=== PATIENT | male | born 1955 | race Caucasian/White ===

== ENCOUNTER 2018-03-19 06:21 | Outpatient (CLI) | payer OTHER ==
[~2018-03-19] VITALS: Ht 175.3 cm; Wt 81.6 kg
[2018-03-19] MEDS ORDERED: LISI1TAB10 PO (12:28)
== END 2018-03-19 12:29 | disposition home or self-care (01) ==
LOC: PREOP 06:21
PROVIDERS: ATTEND Internal Medicine
DX: Z01.818 Encounter for other preprocedural examination (principal)

== ENCOUNTER 2018-03-23 07:57 | Day surgery (SDC) | payer OTHER ==
--- NOTE | 2018-03-15 17:11 | HISTORY AND PHYSICAL ---
DATE OF SERVICE: ESOPHAGOGASTRODUODENOSCOPY HISTORY AND PHYSICAL DATE OF : 1955. HISTORY OF PRESENT ILLNESS: The patient is a 62-year-old white male who presented for yearly wellness evaluation. He has a history of hypertension and insulin resistance with no known history of vascular disease. He stated that he has, over the past several months, been having difficulty with intermittent dysphagia to solids only. He denies any heartburn symptomatology and he denies weight loss, abdominal pain, odynophagia, melena or bright red blood per rectum. He does feel like he has to force food down with a small sip or 2 of liquid. PAST MEDICAL HISTORY: Significant for hypertension and insulin resistance. He has had no significant past surgical history other than a right knee scope over 20 years ago with an anterior cruciate ligament injury reported. He has had no problems with knee instability, since continues to work out on a regular basis. 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 FAMILY HISTORY: He has two brothers and four sisters that are alive and well. He has mother who in a motor vehicle accident in 50s and father who is alive and well at the age of 84. Does have some marked osteoarthritis. PHYSICAL EXAMINATION: GENERAL: Reveals a well-appearing white male, appears to be in no acute distress. VITAL SIGNS: Weight was up 1.6 pounds from 04/2017, blood pressure 130/72. HEENT: Unremarkable. Sclerae are nonicteric. CHEST: Clear to auscultation. CARDIOVASCULAR: Reveals regular rate and rhythm without murmur, S3 or S4. ABDOMEN: Soft, supple without mass, organomegaly or tenderness. EXTREMITIES: Reveal no cyanosis, clubbing or edema. One small seborrheic keratosis was noted in the left upper arm. SKIN: Evaluation with no other suspicious nevi being appreciated on skin examination. EXTREMITIES: Reveal no cyanosis, clubbing or edema. RECTAL: Deferred to the time of EGD evaluation. LABORATORY DATA: Relatively unremarkable wellness examination. Blood tests were reviewed with the patient, did point out that his blood sugar was up slightly to 108 secondary to a small amount of weight gain. LDL was up slightly as well, mildly elevated at 144 with reasonable HDL for a man at 56. PSA was 3.43. ASSESSMENT AND PLAN: 1. Dysphagia. After discussion, the patient is set up for esophagogastroduodenoscopy evaluation on 03/23/2017. The procedure was discussed with the patient. 2. Hypertension, under good control. 3. Insulin resistance. Discussed the importance of portion control, weight loss for prevention of diabetes. We will see him back in six months with a repeat basic metabolic panel. Job ID: [id number] DocumentID: [id number] Dictated Date: 03/12/2018 15:53:15 Board Liner Operator Date: 03/12/2018 17:02:03 Dictated By: ANDRES VAUGHN MD MTDD
[~2018-03-23] VITALS: Ht 175.3 cm; Wt 81.6 kg
[~2018-03-23 07:57] MED LIST: LISI1TAB10 PO
[2018-03-23] MEDS ORDERED: D5 LR IV SOLUTION 1,000 ML IV ONE (08:12)
[2018-03-23 08:15] VITALS: BP 139/82
--- NOTE | 2018-03-23 08:33 | Pre-Op Note & Conscious Sedat ---
Pre-Operative Progress Note H&P Reviewed The H&P was reviewed, patient examined and no changes noted. Date H&P Reviewed: Mar 23, 2018 Time H&P Reviewed: 08:33 Conscious Sedation Pre-Proced ASA Score 2 For ASA 3 and 4: Consider anesthesia and medical clearance. Also, for patients with a history of failed moderate sedation consider anesthesia. Airway Lungs Heart ASA score ASA 1: a normal healthy patient ASA 2: a patient with a mild systemic disease (mid diabetes, controlled hypertension, obesity ASA 3: a patient with a severe systemic disease that limits activity (angina , COPD, prior Myocardial infarction) ASA 4: a patient with an incapacitating disease that is a constant threat to life (CHF, renal failure) ASA 5: a moribund patient not expected to survive 24 hrs. (ruptured aneurysm) ASA 6: a declared brain patient whose organs are being harvested. For emergent operations, add the letter E after the classification Mallampati Classification Grade 2 Sedation Plan Analgesia, Amnesia, Plan communicated to team members, Discussed options with patient/fam, Discussed risks with patient/fam The patient is an appropriate candidate to undergo the planned procedure, sedation, and anesthesia. The patient immediately re-assessed prior to indication. ANDRES VAUGHN MD Mar 23, 2018 08:33
[2018-03-23] MEDS ORDERED: D5 LR IV SOLUTION 1,000 ML IV STA (08:36)
[2018-03-23] MEDS ORDERED: MIDAZOLAM 2 MG/2 ML (VERSED) VIAL IVP ONE (08:45)
[2018-03-23] MEDS ORDERED: fentaNYL INJECTION 100 MCG/2 ML AMP IVP ONE (08:45)
[2018-03-23] MEDS ORDERED: HURRICAINE EXT TUBE (BENZOCAINE) XX PRN (08:45)
[2018-03-23] MEDS ORDERED: LIDOCAINE JELLY 2% 6 ML SYRINGE ONE (08:47)
[2018-03-23] MEDS ORDERED: fentaNYL INJECTION 100 MCG/2 ML AMP ONE (08:47)
[2018-03-23] MEDS ORDERED: HURRICAINE EXT TUBE (BENZOCAINE) ONE (08:48)
[2018-03-23] MEDS ORDERED: MIDAZOLAM 2 MG/2 ML (VERSED) VIAL ONE ×3 (08:48→09:11)
[2018-03-23 09:50] VITALS: BP 105/71
[2018-03-23] MEDS ORDERED: OMEP20CA12 PO (10:05)
[2018-03-23 10:20] VITALS: BP 117/73
[2018-03-23 10:35] VITALS: BP 117/73
--- NOTE | 2018-03-23 20:26 | OPERATIVE REPORT ---
DATE OF SERVICE: 03/23/2018 EGD SUMMARY EGD is performed for evaluation of dysphagia. The patient was placed in the left lateral decubitus position. The endoscope was inserted in the oral cavity and under direct visualization, the esophagus was intubated. The scope was passed down the esophagus through the stomach and second portion of the duodenum. Careful inspection was made as the endoscope was withdrawn. The patient tolerated the procedure well. FINDINGS: The posterior hypopharynx, arytenoid aperture and true and false vocal folds were unremarkable to visual inspection. Proximal and mid esophagus were unremarkable. Several linear ulcers involving the distal esophagus. The GE junction was proximally placed secondary to a large hiatal hernia. There was evidence for erosive esophagitis with stricture formation that caused no significant narrowing of the esophagus. There are questionable findings of short segment Johnston's. Several biopsies were obtained and submitted for histopathology. No nodularity or evidence to suggest underlying malignancy to visual inspection were noted. The cardia, fundus and antrum of the stomach are in the presence of a large hiatal hernia, photographed on retroflex viewing was noted. The pylorus, the pyloric channel, the duodenal bulb and second portion of the duodenum were unremarkable. No evidence for peptic ulcer disease and no evidence to suggest significant gastritis. ASSESSMENT: LA grade D reflux esophagitis with a large hiatal hernia is present. Digital findings suggest the possibility of short segment Johnston's, but a little difficult to evaluate due to underlying erosive changes. Mild stricture formation is present. It was not associated with significant narrowing such that the balloon dilatation was not required. 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 Future surveillance EGD evaluation will be pending histopathology results. Discussed need for lifelong acid reduction therapy and omeprazole 20 mg to be taken q.a.m. daily was called into his pharmacy. Job ID: [id number] DocumentID: [id number] Dictated Date: 03/23/2018 11:08:31 On Site Soil Evaluator Date: 03/23/2018 20:25:53 Dictated By: ANDRES VAUGHN MD
== END 2018-03-23 10:40 | disposition home or self-care (01) ==
LOC: ENDO 07:57
PROVIDERS: ATTEND Internal Medicine
DX: K21.0 Gastro-esophageal reflux disease with esophagitis (principal); K44.9 Diaphragmatic hernia without obstruction or gangrene; K22.2 Esophageal obstruction; I10 Essential (primary) hypertension; E88.81 Metabolic syndrome and other insulin resistance

== ENCOUNTER 2021-04-08 05:39 | Outpatient (CLI) | payer BC, OTHER ==
[~2021-04-08] VITALS: Ht 175.3 cm; Wt 89.4 kg
[~2021-04-08 05:39] MED LIST changes: -LISI1TAB10 PO; +LISI1TAB48 PO; +OMEP20CA18 PO
[2021-04-08] MEDS ORDERED: LISI40TA9 PO (11:41)
== END 2021-04-08 15:27 | disposition home or self-care (01) ==
LOC: PREOP 05:39
PROVIDERS: ATTEND Internal Medicine
DX: Z01.818 Encounter for other preprocedural examination (principal)

== ENCOUNTER → 2021-04-09 | Outpatient (CLI) | payer SELFPAY ==
[~2021-04-09] MED LIST changes: +LISI40TA9 PO
--- NOTE | 2021-04-09 11:19 | Diagnostic Imaging Report ---
INDICATION: Hypertension. TECHNIQUE: CT cardiac calcium scoring study performed with no IV contrast with CT images of the heart. Calculation of cardiac calcium score was then performed using the raw data. Dose-reduction protocol was used. FINDINGS: Visualized portions of the aorta were nonaneurysmal. There is an incidental prominent hiatal hernia. There is no mediastinal adenopathy. Visualized portions of the lung alba demonstrate no focal abnormality. The entirety of the lung alab are not included on the study. There are calcifications visualized in the coronary tree. Calcium score of 11.1 was obtained in the right coronary artery. Calcium score of 0 was obtained in the circumflex coronary artery. Calcium score of 25.7 is obtained in the proximal left anterior descending coronary artery. Indeterminate calcification was seen with score of 1.5. Total calcium score was 38.2. IMPRESSION: Coronary calcifications are present with total score of 38.2, compatible with overall mild plaque burden. Incidental hiatal hernia noted as well. Dictated by: Dictated on workstation # [id number]
== END ==
LOC: RAD FS 09:52
PROVIDERS: ATTEND Internal Medicine
DX: I25.10 Atherosclerotic heart disease of native coronary artery without angina pectoris (principal); K44.9 Diaphragmatic hernia without obstruction or gangrene; I10 Essential (primary) hypertension
CPT/HCPCS: 75571

== ENCOUNTER 2021-04-16 07:15 | Day surgery (SDC) | payer BC, MEDICARE, OTHER ==
--- NOTE | 2021-04-08 06:56 | HISTORY AND PHYSICAL ---
DATE OF SERVICE: COLONOSCOPY HISTORY AND PHYSICAL HISTORY: The patient is a 65-year-old white male seen for routine evaluation of hypertension and hyperlipidemia. It has been a little over 10 years since his last screening colonoscopy that was unremarkable and he is being set up for his second screening colonoscopy. He is deemed to be of average risk as he is not aware of any family history for colon cancer. Denies rectal bleeding, melena, abdominal pain or change in bowel habit. Reports all in all, he has been feeling well. He is fully vaccinated for COVID and received influenza vaccination. He has history of mild hyperlipidemia, has opted not for statin therapy, did undergo a CT for coronary scoring that this was done in 2008 that was 0. He voiced no complaints today. PHYSICAL EXAMINATION: GENERAL: Reveals a white male, appeared to be in no acute distress. VITAL SIGNS: Weight was up 6.4 pounds over the past 6 months to 197.8, blood pressure 140/78. HEENT: Unremarkable. Sclerae nonicteric. Ear canals clear. CHEST: Clear to auscultation. CARDIOVASCULAR: Reveals a regular rate and rhythm without murmur, S3 or S4. ABDOMEN: Soft, supple without mass, organomegaly or tenderness. EXTREMITIES: Reveal no cyanosis, clubbing or edema. ASSESSMENT AND PLAN: 1. After discussing rationale, the patient is being set up for a second screening colonoscopy, deemed to be of average risk as noted above. Prep instructions with the Suprep kit were given and questions answered. 2. Hyperlipidemia. Blood tests were reviewed with the patient. It was recommended as he is a candidate for statin therapy with at least 7.5% risk of vascular disease over the next 10 years and he wishes to continue not to take medication. Advise repeat CT for coronary scoring. 3. Hypertension, under reasonable control. 4. Elevated PSA likely due to BPH. His level today is a little lower than 6 months ago 5.48 compared to 5.96. We will send a copy of this to his urologist. Lastly, we did discuss the importance of cutting back on carbohydrates. He qualifies for insulin resistance with a fasting sugar of 107 and put on 6 pounds. This may be his last office visit as he will likely be moving to [place] in June or July of this year. I will see him back in six months if he is still in town. Job ID: [id number] DocumentID: [id number] Dictated Date: 03/17/2021 16:08:23 Books Binder Date: 03/17/2021 16:37:51 Dictated By: ANDRES VAUGHN MD
[~2021-04-16] VITALS: Ht 175.3 cm; Wt 89.4 kg
[2021-04-16] MEDS ORDERED: LACTATED RINGERS 1,000 ML IV STA (07:16)
[2021-04-16] MEDS ORDERED: LACTATED RINGERS 1,000 ML IV ONE (07:23)
[2021-04-16 07:27] VITALS: BP 158/86
[2021-04-16] MEDS ORDERED: LIDOCAINE JELLY 2% 6 ML SYRINGE MM PRN (07:30)
[2021-04-16] MEDS ORDERED: PROPOFOL INJECTION 50 ML IV ONE (07:49)
--- NOTE | 2021-04-16 08:06 | Pre-Op Note & Conscious Sedat ---
Pre-Operative Progress Note H&P Reviewed The H&P was reviewed, patient examined and no changes noted. Date H&P Reviewed: Apr 16, 2021 Time H&P Reviewed: 07:45 Conscious Sedation Pre-Proced ASA Score 2 For ASA 3 and 4: Consider anesthesia and medical clearance. Also, for patients with a history of failed moderate sedation consider anesthesia. Airway Lungs Heart ASA score ASA 1: a normal healthy patient ASA 2: a patient with a mild systemic disease (mid diabetes, controlled hypertension, obesity ASA 3: a patient with a severe systemic disease that limits activity (angina, COPD, prior Myocardial infarction) ASA 4: a patient with an incapacitating disease that is a constant threat to life (CHF, renal failure) ASA 5: a moribund patient not expected to survive 24 hrs. (ruptured aneurysm) ASA 6: a declared brain- patient whose organs are being harvested. For emergent operations, add the letter E after the classification Mallampati Classification Grade 2 Sedation Plan Analgesia, Amnesia, Plan communicated to team members, Discussed options with patient/fam, Discussed risks with patient/fam The patient is an appropriate candidate to undergo the planned procedure, sedation, and anesthesia. The patient immediately re-assessed prior to indication. ANDRES VAUGHN MD Apr 16, 2021 08:06
[2021-04-16 08:40] VITALS: BP 99/57
[2021-04-16 08:45] VITALS: BP 128/63
[2021-04-16 08:50] VITALS: BP 121/74
[2021-04-16 08:55] VITALS: BP 137/74
--- NOTE | 2021-04-16 09:04 | OPERATIVE REPORT ---
DATE OF SERVICE: COLONOSCOPY SUMMARY INDICATION FOR THE PROCEDURE: Screening. DESCRIPTION OF PROCEDURE: The patient was placed in the left lateral decubitus position. Prior to undergoing colonoscopy, digital rectal evaluation was performed. The prostate was moderately enlarged on digital inspection. There is uniform consistency except for the right side of the apex, but the prostate does feel firmer than the left and elsewhere. No other abnormalities were noted on digital inspection of anal canal or distal rectal vault. The colonoscope was then inserted into the rectum and under direct visualization advanced to the cecum. The cecum was identified by identification of the ileocecal valve, cecal strap and appendiceal orifice. Photographic documentation was obtained. Careful inspection was made as colonoscope withdrawn. Quality of prep was good. FINDINGS: There was no evidence for internal or external hemorrhoids and the rectum, sigmoid colon, descending colon, and splenic flexure were unremarkable. Present in the proximal transverse colon was a diminutive 4 mm sessile polyp was photographed and biopsied and ablated with no subsequent blood loss. The hepatic flexure was unremarkable. Present in the proximal ascending colon adjacent to the ileocecal valve was another diminutive now 3 x 6 mm sessile polyp. It was a difficult location to photograph, but was biopsied and ablated without blood loss and submitted for histopathology. Cecum was unremarkable. ASSESSMENT: 1. Two diminutive polyps were removed via hot forceps today, one in the proximal transverse colon, the other in the proximal ascending colon. We will await a histopathology report with likely recommendation for consideration for repeat screening colonoscopy in 10 years. No other colonic abnormalities were noted. 2. Digital evaluation of the prostate was compatible with at least moderate BPH. The right aspect of the apex was slightly firmer than the left. I will review most recent PSA and make further recommendations. Job ID: [id number] DocumentID: [id number] Dictated Date: 04/16/2021 08:42:41 Apartment Maintenance Manager Date: 04/16/2021 09:03:43 Dictated By: ANDRES VAUGHN MD [facility]
[2021-04-16 09:16] VITALS: BP 134/88
--- NOTE | 2021-04-16 10:30 | Anesthesia-General Post-Op ---
MAC Significant Intra-Op Events Notes Patient vomited during procedure with decreased spo2-99/100 down to 93/94 Patient Condition Mental Status/LOC: Same as Preop Cardiovascular: Satisfactory Nausea/Vomiting: Absent Respiratory: Satisfactory Pain: Controlled Complications: Absent Post Op Complications Complications None Follow Up Care/Instructions Patient Instructions Instructed patient on signs and symptoms of aspiration pneumonia and when to seek care/come to the ED. Anesthesiology Discharge Order Discharge Order Patient is doing well, no complaints, stable vital signs, no apparent adverse anesthesia problems other than noted (SpO2 97%on room air) No complications reported per nursing. CHRISTIANO NAIR CRNA Apr 16, 2021 10:30
== END 2021-04-16 09:23 | disposition home or self-care (01) ==
LOC: ENDO 07:15
PROVIDERS: ATTEND Internal Medicine
DX: Z12.11 Encounter for screening for malignant neoplasm of colon (principal); D12.3 Benign neoplasm of transverse colon; K63.5 Polyp of colon; N40.0 Benign prostatic hyperplasia without lower urinary tract symptoms; I10 Essential (primary) hypertension; E78.5 Hyperlipidemia, unspecified; E88.81 Metabolic syndrome and other insulin resistance; K21.9 Gastro-esophageal reflux disease without esophagitis; Z79.899 Other long term (current) drug therapy